=== PATIENT | female | born 1990 | race Caucasian/White ===

== ENCOUNTER 2016-09-28 09:30 | Emergency (ER) | payer BC ==
[~2016-09-28] VITALS: Ht 162.6 cm; Wt 73.0 kg
[~2016-09-28 09:30] MED LIST: NORCO 5/3251 TABLET PO; NUVARING VAGIN1 EACH PO; VENTOLIN17 GM IH
[2016-09-28 10:02] LABS: ADD MIUA? YES; BILIRUBIN NEGATIVE; BLOOD SMALL; COLOR YELLOW ((YELLOW)); GLUCOSE (STRIP) NEGATIVE; KETONES NEGATIVE; LEUKOCYTES LARGE; NITRITE POSITIVE; PROTEIN (STRIP) 30; SPECIFIC GRAVITY 1.011 (1.000-1.030); UROBILINOGEN 0.2 MG/DL (0.2-1.0)
[2016-09-28 10:06] LABS: BACTERIA 1+ /HPF; BUDDING YEAST 1+; EPITHELIAL CELLS 1+ /HPF; MUCUS 1+ /LPF; UCUL ADDED? YES; WHITE BLOOD CELLS TNTC /HPF (0-5)
[2016-09-28 10:34] LABS: INTERNAL CONTROL VALID? YES
[2016-09-28] MEDS ORDERED: PYRIDIUM200 MG PO (11:10)
[2016-09-28 11:22] VITALS: BP 128/85
== END 2016-09-28 11:23 | disposition home or self-care (01) ==
LOC: EME 09:30
PROVIDERS: Nurse Practitioner Family
DX: B37.3 Candidiasis of vulva and vagina (principal); N39.0 Urinary tract infection, site not specified; Z87.440 Personal history of urinary (tract) infections; J45.909 Unspecified asthma, uncomplicated; F17.200 Nicotine dependence, unspecified, uncomplicated; Z71.6 Tobacco abuse counseling
CPT/HCPCS: 81003; 84703; 87077; 87086; 87186; 99281; 99283